=== PATIENT | female | born 1945 | race Caucasian/White ===

== ENCOUNTER → 2017-01-30 | Outpatient (CLI) | payer OTHER ==
[~2017-01-30] MED LIST: ASPEC81 PO; ATEN-173 PO; ATV1 PO; CLX20 PO; GLC500 PO; LSNUNK; MULT-506 PO; OMEG10007 PO; SIMV10TA2 PO
--- NOTE | 2017-02-02 13:17 | MAMMOGRAPHY REPORT ---
BILATERAL DIGITAL SCREENING MAMMOGRAM WITH CAD: 01/30/2017 CLINICAL HISTORY: Routine screening. Patient has no complaints. TECHNIQUE: Current study was also evaluated with a Computer Aided Detection (CAD) system. Bilateral CC and MLO views were obtained. COMPARISON: Comparison is made to exams dated: 01/29/2016 mammogram, 01/24/2015 mammogram, 12/19/2013 m ammogram, 12/16/2012 mammogram, 12/17/2011 ultrasound, and 12/17/2011 mammogram - [facility] ter. BREAST COMPOSITION: The tissue of both breasts is heterogeneously dense, which may obscure small mas ses. FINDINGS: There is questionable architectural distortion seen within the left breast along the poste rior nipple line on the cc view middle depth, which likely represents normal overlapping fibroglandul ar tissue although spot compression tomosynthesis views and possible breast ultrasound are recommende d for further evaluation. The remainder of both breasts are stable compared to prior exams, without suspicious masses, calcific ations, or areas of architectural distortion noted. Multiple bilateral asymmetries and scattered jacinto ateral benign-appearing calcifications are not significantly changed. IMPRESSION: ACR BI-RADS CATEGORY 0: INCOMPLETE EVALUATION: NEED ADDITIONAL IMAGING EVALUATION Questionable left breast architectural distortion, for which additional imaging evaluation is recomme nded. The patient will be called to schedule an appointment. Approximately 10% of breast cancers are not detected with mammography. A negative mammographic report should not delay biopsy if a clinically suggestive mass is present. Violetta Welch M.D. /:01/30/2017 16:39:48 Internal Medicine Veterinary Technician: Yocasta Escalante RT(R)(M), [facility] letter sent: Addl Imaging 0 BI-RADS Code: ACR BI-RADS Category 0: Incomplete Evaluation: Need Additional Imaging Evaluation
== END | disposition home or self-care (01) ==
LOC: C.MAMM 08:15
PROVIDERS: ATTEND Family Medicine
DX: Z12.31 Encounter for screening mammogram for malignant neoplasm of breast (principal); R92.8 Other abnormal and inconclusive findings on diagnostic imaging of breast

== ENCOUNTER → 2017-02-11 | Outpatient (CLI) | payer OTHER ==
--- NOTE | 2017-02-11 15:52 | MAMMOGRAPHY REPORT ---
UNILATERAL LEFT DIGITAL DIAGNOSTIC MAMMOGRAM TOMOSYNTHESIS AND TARGETED LEFT ULTRASOUND: 02/11/2017 CLINICAL HISTORY: Callback from screening mammogram for questionable left breast architectural distor tion. TECHNIQUE: Breast tomosynthesis in addition to standard 2D mammography was performed. Spot compress ion left CC and MLO 2-D and tomosynthesis images were obtained. COMPARISON: Comparison is made to exams dated: 01/30/2017 mammogram, 01/29/2016 mammogram, 01/24/2015 m ammogram, 12/19/2013 mammogram, 12/16/2012 mammogram, and 12/17/2011 ultrasound - [facility] nter. BREAST COMPOSITION: The tissue of the left breast is heterogeneously dense, which may obscure small masses. FINDINGS: The previously described asymmetry with associated questionable architectural distortion se en within the left slightly medial breast on the cc view effaces to a baseline appearance on the dewayne tional views, with appearance of this region similar to prior exams including the 2011 and 2008 exams . No clear architectural distortion is noted on the tomosynthesis images. Given the long-term stabi lity compared to prior exams, the asymmetry is felt to represent normal fibroglandular tissue. A few incidental round/oval circumscribed benign-appearing masses are seen within the left breast on the t omosynthesis images, which likely represent cysts. Targeted ultrasound was performed of the left slightly medial breast as well as 12:00, 6:00, and suba reolar breast in the region of the mammographic asymmetry. No suspicious masses or other suspicious sonographic abnormalities are evident. Multiple round/oval anechoic circumscribed masses were seen w ithin the left breast on the ultrasound exam, some of which contain thin internal septations, consist ent with cysts. These correspond with the mammographic masses. IMPRESSION: ACR BI-RADS CATEGORY 2: BENIGN, TARGETED ULTRASOUND ACR BI-RADS CATEGORY 2: BENIGN The left breast asymmetry effaces to a baseline appearance on the additional views, with no oracle erp architect ural distortion noted on the additional images. No suspicious sonographic correlate is evident. Fin dings are benign and felt to represent normal fibroglandular tissue. There is no mammographic or tar geted sonographic evidence of malignancy. A 1 year screening mammogram is recommended. The patient h as been verbally notified of the results. Approximately 10% of breast cancers are not detected with mammography. A negative mammographic report should not delay biopsy if a clinically suggestive mass is present. Violetta Welch M.D. ah/:02/11/2017 14:30:03 Oil Seal Assembler: [employer])(Royce), [facility] letter sent: Normal 1/2 BI-RADS Code: ACR BI-RADS Category 2: Benign Ultrasound BI-RADS: ACR BI-RADS Category 2: Benign
== END | disposition home or self-care (01) ==
LOC: C.MAMM 13:40
PROVIDERS: ATTEND Family Medicine
DX: N64.9 Disorder of breast, unspecified (principal)